=== PATIENT | male | born 1980 | race Hispanic/Latino ===

== ENCOUNTER 2017-05-08 10:31 | Emergency (ER) | payer SELFPAY ==
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
--- NOTE | 2017-05-08 11:23 | RAD ---
AP CHEST: History: Dyspnea. Date: 05-08-17 FINDINGS: AP chest demonstrates the lungs to be well aerated. No evidence of active intrathoracic disease seen . No evidence of effusions, pneumonia, or pneumothorax seen. IMPRESSION: Unremarkable AP chest. POS: [facility]
[2017-05-08] MEDS ORDERED: Bacitracin Zinc 1 Packet ONE (12:16)
[2017-05-08] MEDS ORDERED: Adacel (T-DAP) 0.5 ML VIAL ONE (12:16)
[2017-05-08] MEDS ORDERED: HYDROcodone/Acetaminophen 10/325 mg Tablet ONE (12:42)
== END 2017-05-08 12:50 | disposition home or self-care (01) ==
LOC: ERS 10:31
DX: S41.001A Unspecified open wound of right shoulder, initial encounter (principal); S50.01XA Contusion of right elbow, initial encounter; S70.211A Abrasion, right hip, initial encounter; S30.811A Abrasion of abdominal wall, initial encounter; S80.211A Abrasion, right knee, initial encounter; F41.9 Anxiety disorder, unspecified; F32.9 Major depressive disorder, single episode, unspecified; F17.210 Nicotine dependence, cigarettes, uncomplicated; V03.90XA Pedestrian on foot injured in collision with car, pick-up truck or van, unspecified whether traffic or nontraffic accident, initial encounter
CPT/HCPCS: 71010; 72170; 90471; 90715; 96372; J2270

== ENCOUNTER 2017-11-20 20:08 | Emergency (ER) | payer SELFPAY ==
[2017-11-20 20:46] LABS: #Eosinphils 0.8 thou/uL (0.0-0.7); #Lymphocytes 1.2 thou/uL (1.20-3.40); #Monocytes 0.4 thou/uL (0.11-0.59); #Neutrophils 2.3 thou/uL (1.40-6.50); %Basophils 0.7 % (0.0-1.0); %Eosinophils 17.4 % (0.0-10.0); %Lymphocytes 24.7 % (21.0-51.0); %Monocytes 7.8 % (0.0-10.0); %Neutrophils 49.4 % (42.0-75.0); Mean Corpuscular HGB CONC 35.3 g/dL (32.0-36.0); Mean Corpuscular Hemoglobin 29.6 pg (27.0-31.0); Mean Corpuscular Volume 83.7 fl (80.0-94.0); Mean Platelet Volume 7.1 fL (7.4-10.4); Platelet Count 179 thou/uL (130-400); RBC Distribution Width 12.2 % (11.5-14.5); White Blood Cell (WBC) Count 4.7 thou/uL (4.8-10.8)
[2017-11-20 21:07] LABS: ALT (SGPT) 35 U/L (8-55); AST (SGOT) 37 U/L (5-34); Albumin 4.4 g/dL (3.5-5.0); Alkaline Phosphatase 94 U/L (40-150); Anion Gap 13 mmol/L (10-20); BUN (Urea Nitrogen) 18 mg/dL (8.9-20.6); Bilirubin, Total 0.5 mg/dL (0.2-1.2); Calc. Creatinine Clearance 0 mL/min (70-130); Calcium 9.4 mg/dL (7.8-10.44); Carbon Dioxide 25 mmol/L (22-29); Chloride 105 mmol/L (98-107); Estimated GFR-MDRD 77; Globulin 3.5 g/dL (2.4-3.5); Glucose 118 mg/dL (70-105); Potassium 4.7 mmol/L (3.5-5.1); Protein, Total 7.9 g/dL (6.0-8.3); Sodium 138 mmol/L (136-145)
[2017-11-20 22:54] LABS: Bilirubin Negative (Negative); Blood, Urine Negative (Negative); Clarity CLEAR (Clear); Glucose, Urine (Dipstick) Negative (Negative); Leukocyte Negative (Negative); Nitrite Negative (Negative); Protein, Urine (Dipstick) Negative (Neg-Trace); Specific Gravity, Urine 1.024 (1.002-1.036); Urobilinogen 0.2 mg/dL (0.2-1.0)
[2017-11-21 00:06] LABS: HIV 1/2 INDEX 754.96 S/CO (<1.00)
[2017-11-21 00:10] LABS: HIV (1/2) Antibody/Antigen Reflxed Confirmation (NonReactive)
[2017-11-23 12:08] LABS: HIV 1 Antibody Multi-Spot Positive (Negative); HIV 2 Antibody Multi-Spot Negative (Negative); HIV Multi-spot Interp HIV-1 Positive (.)
== END 2017-11-21 00:30 | disposition home or self-care (01) ==
LOC: ERS 20:08
DX: R19.7 Diarrhea, unspecified (principal); R21 Rash and other nonspecific skin eruption; Z21 Asymptomatic human immunodeficiency virus [HIV] infection status; F17.210 Nicotine dependence, cigarettes, uncomplicated; F41.9 Anxiety disorder, unspecified; F32.9 Major depressive disorder, single episode, unspecified; Z71.6 Tobacco abuse counseling; Z79.899 Other long term (current) drug therapy
CPT/HCPCS: 36415; 80053; 81003; 83690; 85025; 86701; 86702; 87389; 99406